=== PATIENT | female | born 1980 | race Two or more races ===

== ENCOUNTER 2021-03-27 23:00 | Emergency (ER) | payer OTHER ==
[~2021-03-27] VITALS: Ht 167.6 cm; Wt 63.5 kg
[2021-03-28] MEDS ORDERED: PEPCID AC20 MG PO (03:33)
[2021-03-28] MEDS ORDERED: PROTONIX20 MG PO (03:33)
[2021-03-28] MEDS ORDERED: ONDANSETRON HCL4 MG PO (03:33)
[2021-03-28] MEDS ORDERED: CARAFATE1 GM PO (03:51)
== END 2021-03-28 03:51 | disposition home or self-care (01) ==
LOC: ER 23:00 → EDBD 23:00 → ER 23:28
DX: R10.84 Generalized abdominal pain (principal); R11.2 Nausea with vomiting, unspecified